=== PATIENT | male | born 1950 | race Caucasian/White ===

== ENCOUNTER 2024-10-24 08:25 | Observation (INO) | payer OTHER, SELFPAY ==
[2024-10-24] VITALS (8 sets, daily range): BP systolic 146–179; BP diastolic 79–97; PULSE 78–94; RESP 14–21; TEMP 36.7–37.1; O2SAT 96–100; BMI 30.4; BMI 28.3
--- NOTE | 2024-10-24 08:28 | XRR_ITS ---
PROCEDURE INFORMATION: Exam: XR Chest Exam date and time: 10/24/2024 8:56 AM Age: 74 years old Clinical indication: Other: AMS TECHNIQUE: Imaging protocol: Radiologic exam of the chest. Views: 1 view. COMPARISON: No relevant prior studies available. FINDINGS: Lungs: There is mild left pulmonary scarring. No consolidation. Pleural spaces: Unremarkable. No pleural effusion. No pneumothorax. Heart/Mediastinum: Unremarkable. No cardiomegaly. Bones/joints: Unremarkable. XR/XR chest 1V portable [id number] IMPRESSION: No acute findings.
--- NOTE | 2024-10-24 08:28 | CTR_ITS ---
PROCEDURE INFORMATION: Exam: CT Head Without Contrast Exam date and time: 10/24/2024 8:53 AM Age: 74 years old Clinical indication: Altered mental status/memory loss; Confusion or disorientation; Additional info: AMS TECHNIQUE: Imaging protocol: Computed tomography of the head without contrast. Radiation optimization: All CT scans at this facility use at least one of these dose optimization techniques: automated exposure control; mA and/or kV adjustment per patient size (includes targeted exams where dose is matched to clinical indication); or iterative reconstruction. COMPARISON: No relevant prior studies available. RADIATION DOSE METRICS: Total DLP (mGy-cm): 990.98 FINDINGS: Brain: There is no evidence of acute parenchymal hemorrhage, extra-axial collection, or acute infarction. There is no mass effect, midline shift, or downward herniation. Cerebral ventricles: No ventriculomegaly. Paranasal sinuses: Visualized sinuses are unremarkable. No fluid levels. Mastoid air cells: Visualized mastoid air cells are well aerated. Bones: Unremarkable. No acute fracture. Soft tissues: Unremarkable. CT/CT head wo con* [id number] IMPRESSION: No acute intracranial abnormality.
--- NOTE | 2024-10-24 08:30 | ED_ITS ---
HPI - Neuro Symptoms/Deficit 2 General: Chief Complaint: Altered Mental Status Stated Complaint: ams Time Seen by Provider: 10/24/24 08:25 Source: patient and EMS Mode of arrival: EMS History of Present Illness: 74-year-old male is here with EMS for al tered mental status and confusion. EMS states that he has been having some confusion since last night. Patient here is able to tell me his name where he is from but he is confused he states the year was 1973. He has had no slurred speech or weakness or focal deficits denies any fever or pain Associated symptoms: Deny chest pain, headache(s), nausea or vomiting Related Data Allergies Allergy/AdvReac Type Severity Reaction Status Date / Time No Known Allergies Allergy Verified 10/24/24 08:31 Review of Systems 2 Const: Denies: fever(s), chills, body aches or change in appetite Eyes: Denies: blurry vision or eye discomfort ENMT: Denies: throat pain or dental pain Card: Denies: chest pain Resp: Denies: dyspnea GI: Denies: abdominal pain, nausea, vomiting or diarrhea Musc: Denies: neck pain or back pain Skin/Breast: Denies: rash Neuro: Denies: headache(s) NIH stroke score 2 NIHSS: Level Of Consciousness - 1a: 0 Level Of Consciousness Questions - 1b: Both Correct Level Of Consciousness Commands - 1c: Both Correct Best Gaze - 2: Normal Visual Collins - 3: No Visual Loss Facial Palsy - 4: N ormal Motor Arm Right - 5: No Drift Motor Arm Left - 5: No Drift Motor Leg Right - 6: No Drift Motor Leg Left - 6: No Drift Limb Ataxia - 7: A bsent Sensory - 8: Normal Best Language - 9: No Aphasia Dysarthia - 10: Normal Extinction And Inattention - 11: 0 Score: Total Score: 0 Physical Exam 2 Const: COMMON NORMALS: no acute distress, healthy appearing and alert O RIENTATION/CONSCIOUSNESS: Yes oriented to person and Yes oriented to place; not oriented to time HENMT: COMMON NORMALS: normocephalic and atraumatic HEAD & SCALP: n ormocephalic and atraumatic Eye: COMMON NORMALS: Equal, round and reactive pupils present and EOMs intact bilaterally PUPIL: Yes Equal, round and reactive pupils present Neck/C-Spine: COMMON NORMALS: full ROM and supple Chest: COMMONS NORMALS: normal inspection of the chest Resp: COMMON NORMALS: normal respiratory effort, No retractions, No use of accessory muscles and clear to auscultation bilaterally AUSCULTATION: clear to auscultation bilaterally Cardio: COMMON NORMALS: regular rate, regular rhythm and No murmurs present (Cardio) RATE: regular rate RHYTHM: regular rhythm GI: COMMON NORMALS: Normal to inspection, nondistended, normoactive bowel sounds present, Soft to palpation, non-tender and no masses PALPATION: Yes Soft to palpation Extremity: COMMON NORMALS: normal to inspection and full ROM Neuro: COMMON NORMALS: moves all extremities and no focal motor deficits S ENSORIUM/ORIENTATION: Yes alert, Yes oriented to person, Yes oriented to place and No oriented to time Psych: COMMON NORMALS: mental status grossly normal, Normal thought process present and cooperative THOUGHT PROCESS: Normal thought process present Skin: COMMON NORMALS: no rashes or lesions noted and no wounds GENERAL SKIN EXAM: no rashes or lesions noted Course 2 Vital Signs: Vital signs: Vital Signs Temperature 98.7 F 10/24/24 08:25 Pulse Rate 91 10/24/24 08:25 Respiratory Rate 18 10/24/24 08:25 Blood Pressure 177/80 10/24/24 08:25 Pulse Oximetry 98 10/24/24 08:25 Oxygen Delivery Me thod Room Air 10/24/24 08:25 MDM - Neuro Symptoms/Deficit Medical Decision Making Patient presents here with altered mental status he has have confusion does not know the year patient is not a lytic candidate due to being out of window last time normal was last night spoke to hospitalist will admit at this time. Medical Records I reviewed the patient's medical records. Lab Data I reviewed the patient's lab results. 10/24/24 08:32 10/24/24 08:32 Radiology Impressions Chest X-Ray 10/24/24 08:28 IMPRESSION: No acute findings. Head CT 10/24/24 08:28 IMPRESSION: No acute intracranial abnormality. Laboratory Results WBC 3.82 10^3/uL (3.29-11.43) 10/24/24 08:32 RBC 4.48 10^6/uL (3.85-5.65) 10/24/24 08:32 Hgb 13.90 g/dL (11.27-16.99) 10/24/24 08:32 Hct 41.5 % (37-53) 10/24/24 08:32 MCV 92.6 fl (82-101) 10/24/24 08:32 MCH 31.0 pg (27-33) 10/24/24 08:32 MCHC 33.5 g/dL (30-55) 10/24/24 08:32 RDW 13.6 % (12.1-15.1) 10/24/24 08:32 Plt Count 126 10^3/cmm (157-399) L 10/24/24 08:32 MPV 10.6 fL (7.4-10.4) H 10/24/24 08:32 Neut % (Auto) 39.7 % 10/24/24 08:32 Lymph % (Auto) 44.8 % 10/24/24 08:32 [place] % (Auto) 10.2 % 10/24/24 08:32 Eos % (Auto) 4.5 % 10/24/24 08:32 Baso % (Auto) 0.5 % 10/24/24 08:32 Neut # (Auto) 1.52 10^3/uL (1.8-7.7) L 10/24/24 08:32 Lymph # (Auto) 1.7 10^3/uL (0.8-4.8) 10/24/24 08:32 [place] # (Auto) 0.4 10^3/uL (0.2-0.9) 10/24/24 08:32 Eos # (Auto) 0.2 10^3/uL (0.0-0.8) 10/24/24 08:32 Baso # (Auto) 0.0 10^3/uL (0.0-0.1) 10/24/24 08:32 Nucleated RBC % (auto) 0 % 10/24/24 08:32 Nucleated RBCs # 0.0 /100WBC 10/24/24 08:32 PT 15.10 SECONDS (12.1-14.9) H 10/24/24 08:32 INR 1.11 (0.8-1.2) 10/24/24 08:32 Sodium 139 mmol/L (136-145) 10/24/24 08:32 Potassium 4.1 mmol/L (3.5-5.1) 10/24/24 08:32 Chloride 106 mmol/L (98-107) 10/24/24 08:32 Carbon Dioxide 22 mmol/L (22-29) 10/24/24 08:32 Anion Gap 15.1 (5-19) 10/24/24 08:32 BUN 17 mg/dL (8-23) 10/24/24 08:32 Creatinine 0.9 mg/dL (0.7-1.2) 10/24/24 08:32 GFR Calculation Not Reportable 10/24/24 08:32 Glucose 113 mg/dL (65-115) 10/24/24 08:32 Calculated Osmolality 290 mOsm/kg (285-295) 10/24/24 08:32 Calcium 9.3 mg/dL (8.5-10.5) 10/24/24 08:32 Total Bilirubin 1.1 mg/dL (0.15-1.2) 10/24/24 08:32 AST 35 U/L (0-40) 10/24/24 08:32 ALT 25 U/L (0-41) 10/24/24 08:32 Alkaline Phosphatase 60 U/L (40-130) 10/24/24 08:32 Total Protein 7.3 g/dL (6.6-8.7) 10/24/24 08:32 Albumin 4.0 g/dL (3.5-5.2) 10/24/24 08:32 Globulin 3.3 g/dL (1.3-4.6) 10/24/24 08:32 TSH 3.04 uIU/mL (0.27-4.20) 10/24/24 08:32 Urine Color Yellow (Yellow) 10/24/24 08:45 Urine Appearance Clear (CLEAR) 10/24/24 08:45 Urine pH 6.5 (5-7) 10/24/24 08:45 Ur Specific [place] 1.022 (1.005-1.030) 10/24/24 08:45 Urine Protein Negative (Negative) 10/24/24 08:45 Urine Glucose (UA) Negative (Normal) 10/24/24 08:45 Urine Ketones Negative (Negative) 10/24/24 08:45 Urine Blood Negative (Negative) 10/24/24 08:45 Urine Nitrate Negative (Negative) 10/24/24 08:45 Urine Bilirubin Negative (Negative) 10/24/24 08:45 Urine Urobilinogen 1.0 mg/dL (Negative) 10/24/24 08:45 Ur Leukocyte Esterase Negative (Negative) 10/24/24 08:45 Urine RBC 0-2 /hpf (0-2) 10/24/24 08:45 Urine WBC 0-5 /hpf (0-5) 10/24/24 08:45 Ur Squamous Epith Cells 0-5 /hpf (0-5) 10/24/24 08:45 Amorphous Sediment Not Reportable 10/24/24 08:45 Urine Bacteria None seen /hpf (NONE) 10/24/24 08:45 Hyaline Casts 0.81 /lpf 10/24/24 08:45 All radiology interpretation(s) finalized by discharge EKG Data EKG 1: I personally reviewed and interpreted this EKG as follows: EKG interpretation date: 10/24/24 EKG interpretation time: 08:36 Interpretation: nsr hr [address] elevation qrs 89 qtc 414 Discharge Plan Discharge Patient Disposition: Admitted As Inpatient Clinical Impression: Altered mental status Condition: Stable Coding Level of Care Code ED Director Enterprise [employer] for Lynn Souza
--- NOTE | 2024-10-24 08:36 | ECG_ITS ---
[facility] Test Date: 2024-10-24 Pat Name: Sacha Maldonado Department: Room: Gender: Male Health Care Legal Assistant: : 1950 Requested By: Rhett Franklin Order Number: [id number] Saldaña MD: José iMguel Viera M.D. Measurements Intervals [place] Rate: 90 P: 38 IA: 141 QRS: 67 QRSD: 89 T: 41 QT: 367 QTc: 449 Interpretive Statements SINUS RHYTHM No previous ECG available for comparison Electronically Signed On 10-24-2024 20:16:37 CDT by José Miguel Viera M.D. [email or web address]
--- OUTSIDE RECORDS SUMMARY | 2024-10-24 08:36 | XMS_ITS | Clinical Summary ---
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 Gender Identity Not on file Sexual Orientation Not on file Plan of Treatment Health Maintenance Due Date Last Done Comments Diagnostic Colonoscopy 1950 Depression Screening [address] for [address] Colonography 1995 Colorectal Cancer Screening 1995 FIT-DNA (Cologuard) 1995 Fecal Immunochemical Testing (FIT) 1995 Fecal Occult Blood (FOBT) 1995 Flexible Sigmoidoscopy 1995 Screening Colonoscopy 1995 HCPOA Document on File 02/10/2000 Pneumococcal Vaccines (50+) (1 of 1 - PCV) 02/10/2000 Zoster (Shingles) Vaccine (1 of 2) 02/10/2000 Fall Screening 2015 COVID-19 Vaccine (1 - 2023-2 5 season) 2024 Influenza Vaccine (#1) 2024 RSV Vaccine (60+/) (1 - 1-dose 75+ series) 2025 DTaP/Tdap/Td Vaccines (2 - T d or Tdap) 10/08/2025 10/09/2015 HIB Vaccines Aged Out No longer eligi ble based on patient's age to complete this topic HPV Vaccines Aged Out No longer eligi ble based on patient's age to complete this topic Hepatitis A Vaccines Aged Out No long er eligible based on patient's age to complete this topic Hepatitis B Vaccines Aged Out No long er eligible based on patient's age to complete this topic IPV Vaccines Aged Out No longer eligi ble based on patient's age to complete this topic Meningococcal B Vaccine Aged Out No l onger eligible based on patient's age to complete this topic Meningococcal Vaccine (ACWY) Aged Out No longer eligible based on patient's age to complete this topic Rotavirus Vaccines Aged Out No longer eligible based on patient's age to complete this topic
[2024-10-24 08:42] LABS: Hematocrit 41.5 % (37-53); Hemoglobin 13.90 g/dL (11.27-16.99); Mean Corpuscular HGB Conc 33.5 g/dL (30-55); Mean Corpuscular Hemoglobin 31.0 pg (27-33); Mean Corpuscular Volume 92.6 fl (82-101); Nucleated Red Blood Cells % 0 %; Platelet Count 126 10^3/cmm (157-399); Red Blood Count 4.48 10^6/uL (3.85-5.65); White Blood Count 3.82 10^3/uL (3.29-11.43)
[2024-10-24 08:52] LABS: INR 1.11 (0.8-1.2); Prothrombin Time 15.10 SECONDS (12.1-14.9)
[2024-10-24 09:01] LABS: Glucose Urine UA Negative (Normal); Nitrate Urine Negative (Negative); Specific Gravity, Urine 1.022 (1.005-1.030)
[2024-10-24 09:06] LABS: Add Urine Microscopic? YES
[2024-10-24 09:07] LABS: Alanine Aminotransferase 25 U/L (0-41); Albumin Level 4.0 g/dL (3.5-5.2); Alkaline Phosphatase 60 U/L (40-130); Anion Gap 15.1 (5-19); Aspartate Amino Transferase 35 U/L (0-40); Blood Urea Nitrogen 17 mg/dL (8-23); Calcium 9.3 mg/dL (8.5-10.5); Carbon Dioxide 22 mmol/L (22-29); Chloride 106 mmol/L (98-107); Creatinine Clr Calc Pharmacy 78.7592; Globulin 3.3 g/dL (1.3-4.6); Glucose 113 mg/dL (65-115); Osmolality Calculated 290 mOsm/kg (285-295); Potassium 4.1 mmol/L (3.5-5.1); Sodium 139 mmol/L (136-145); Thyroid Stimulating Hormone 3.04 uIU/mL (0.27-4.20); Total Protein 7.3 g/dL (6.6-8.7)
--- NOTE | 2024-10-24 16:09 | PM.HP ---
Providers/Chief Complaint Admitting Physician: Luke Naidu MD Primary Care Provider: [place] in [facility] Chief Complaint: ams History of Present Illness Sacha Maldonado is a 74 year old male visiting from [facility] with his Marge and they are going to a reunion with her cousins 2 of them who are present at bedside. Patient and are planning to drive to [place] [facility] to see other cousins today leaving from their hotel. Patient's last night noticed that he was confused and thought that he was just missing sleep. This morning he awoke extremely confused with the following examples he was trying to get out of bed and rolling to his right side was tangled up in the blankets and was befuddled. She asked him what he was doing and he said he was stuck trying to get out of bed. She instructed him to roll to his left side to get out of bed disentangle himself from the bedcovers. After that he was putting in his hearing aids and put in 1 hearing aid then walked across the other side of the room also befuddled and she asked what he was doing and he states he was trying to find his hearing aid but it had been next to the other 1 that he just put in. He was also taking his meds and that he held them in his hand took a drink of water and they were still in his hand. This morning he does not know his age or year. He did not seem to be confused regarding where they were or what was going on. Patient was confused until about 2 hours ago. 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 It has a kitchen and common area as well as 3 bathrooms. Patient admits to being a little stressed driving through [place] but otherwise is not under stress. Patient states he has some sleeping medicine at home but has not been taking it. He has only been taking lisinopril 10 mg daily for high blood pressure reports that his blood pressure is typically under control. Patient admits to some cough Review of Systems Narrative: General no fevers chills he felt cold this morning in the ER but states is cold down there he feels fine now he has lost 30 pounds from 210 down to 181. states he felt better after blood pressure medication has been more active Cardiovascular no chest pain he does have palpitations sometimes with anxiety denies edema Respiratory positive for cough x 2 weeks nonproductive no wheezing GI positive for diarrhea 3 weeks duration 4 months ago that resulted in weight loss says the small hospital he was at told him that it was a virus leading to dehydration and altered mental status looks like a stroke and that he was 1 of 4 patients that it had that. He had a negative MRI at the time. Patient never had amnesia before but he has had early dementia about 1 year worse in the last 6 months [address] okay. 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 States he is recently has been building a shed and also babysits his grandkids Medications/Allergies Home Medications ?Medication ?Instructions ?Recorded ?Confirmed ?Last Taken ?Type cholecalciferol (vitamin D3) 125 125 mcg PO DAILY 10/24/24 10/24/24 10/24/24 07:00 History mcg (5,000 unit) tablet (Vitamin D3) fluticasone propionate 50 1 spray intranasal DAILY 10/24/24 10/24/24 10/24/24 History mcg/actuation nasal spray,suspension ibuprofen 200 mg tablet (Advil) 400 mg PO Q6H PRN Fever Or Pain 10/24/24 10/24/24 10/23/24 History lisinopril 10 mg tablet 10 mg PO QAM 10/24/24 10/24/24 10/24/24 07:00 History magnesium glycinate 100 mg (as 100 mg PO DAILY 10/24/24 10/24/24 10/24/24 07:00 History glycinate) tablet omega 7-eeu-luf-fish oil 1,000 mg 1 cap PO DAILY 10/24/24 10/24/24 10/24/24 07:00 History (120 mg-180 mg) capsule (Fish Oil) turmeric 400 mg capsule 400 mg PO DAILY 10/24/24 10/24/24 10/24/24 07:00 History Allergies Allergy/AdvReac Type Severity Reaction Status Date / Time No Known Allergies Allergy Verified 10/24/24 08:31 PFSH Acute PFSH: Medical History (Updated 10/24/24 @ 16:25 by Luke Naidu MD) Dementia Social History (Updated 10/24/24 @ 16:20 by Luke Naidu MD) Smoking and tobacco/nicotine status: light tobacco/nicotine user cigars Cigar details: Mostly while driving to stay awake and quit 30 years ago Alcohol intake: former Former alcohol use details: Drink on occasion i.e. 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 Household members: spouse Marital status: Marital status details: Marge present bedside Previous occupational history: Retired from [employer] Vitals/I&O/Wt Last Vital Signs Temp 98.7 F 10/24/24 08:25 Pulse 92 10/24/24 12:03 Resp 14 10/24/24 11:30 BP 157/80 10/24/24 12:03 Pulse Ox 100 10/24/24 12:03 O2 Del Method Room Air 10/24/24 13:09 10/24/24 10/24/24 10/24/24 06:59 14:59 22:59 Intake Total 0 / 0 Balance 0 / 0 Weight last 48 hrs Weight 84.55 kg Weight 90.718 kg Physical Exam Narrative: General well-developed well-nourished male in no acute cardiopulmonary distress Neuro he is alert and oriented to person place October 2024 Trump the president 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 Pupils equally round and reactive to light external ocular movements are intact face is symmetric tongue deviation perhaps slightly to the right. Eye squint is intact face is without numbness arms without numbness motor strength 5/5 bilateral handgrips biceps triceps ankle flexion and extension. Patient is very strong in all extremities. Head turn left and right normal strength Cardiovascular neck no bruits CV regular rate and rhythm calves no tenderness or pretibial edema Lungs clear to auscultation bilaterally Abdomen positive bowel tones soft nontender Calves no tenderness no asymmetry Skin warm and dry Mentation pleasant easygoing not anxious or angry Data 10/24/24 08:32 10/24/24 08:32 A&P Assessment and plan 1. Altered mental status: This is largely resolved and may be attributable to TIA, hypertensive encephalopathy or transient global amnesia. The patient primarily had confusion with ADLs. He did not have motor dysfunction seen by family his neuroexam is negative except for mild dementia expressive type word finding difficulty. 2. Transient ischemic attack (TIA): Blood pressure elevated will check echocardiogram, telemetry and carotid Dopplers lipid panel in the morning. Patient is reluctant to take statins 3. Dementia: is noted Alzheimer's type symptoms for 1 year worse the last 6 months 4. Hypertension: Due to his cough I am going to stop lisinopril and start losartan at 50 mg daily 5. Hyperlipidemia: Lipid panel in the morning PDMP PDMP Reviewed: Not Reviewed Attestations Medical Necessity Statement*: Patient will be observed overnight and expected to discharge tomorrow afternoon Coding Level of Care Code 66804 Diagnoses Altered mental status R41.82 Transient ischemic attack (TIA) G45.9 Dementia F03.90 Hypertension I10 Hyperlipidemia E78.5 Time Spent (min) 70
--- NOTE | 2024-10-24 16:28 | USR_ITS ---
PROCEDURE INFORMATION: Exam: US Duplex Bilateral Extracranial Arteries; Complete; Carotid Arteries Exam date and time: 10/24/2024 6:56 PM Age: 74 years old Clinical indication: Other: TIA and hypertension TECHNIQUE: Imaging protocol: Real-time duplex ultrasound scan of the bilateral extracranial arteries combining dumont scale, color Doppler and spectral waveform analysis with image documentation. Complete exam. Exam focused on the carotid arteries. COMPARISON: CT head wo con* [id number] 10/24/2024 8:53 AM FINDINGS: Right common carotid artery: Unremarkable. No occlusion or stenosis. Waveforms are normal. Right internal carotid artery: Unremarkable. No occlusion or stenosis. Waveforms are normal. Right ICA/CCA ratio: 1.4. Within normal limits. Right external carotid artery: Slightly elevated velocity at the origin. Right vertebral artery: Unremarkable. Antegrade flow. Left common carotid artery: Unremarkable. No occlusion or stenosis. Waveforms are normal. Left internal carotid artery: Unremarkable. No occlusion or stenosis. Waveforms are normal. Left ICA/CCA ratio: 1.3. Within normal limits. Left external carotid artery: Slightly elevated velocity at the origin. Left vertebral artery: Unremarkable. Antegrade flow. Other findings: Incidental notation of mildly elevated velocity in the left subclavian origin. US/CV carotid duplex BI* [id number] IMPRESSION: No hemodynamically significant carotid arterial stenosis. REFERENCES: SRU CRITERIA. The degree of internal carotid artery stenosis is based on criteria defined by the Society of Radiologists in Ultrasound (SRU). Normal is no stenosis. Mild is less than 50% stenosis. Moderate is 50-69% stenosis. Severe is greater than 69% stenosis to near occlusion. Near occlusion is a markedly narrowed lumen. Total occlusion is no detectable patent lumen. Farhad Worley, et al. Carotid Artery Stenosis: Dumont-Scale and Doppler US Diagnosis-Society of Radiologists in Ultrasound Consensus Conference. Radiology 2003; 229:340-346.
--- NOTE | 2024-10-24 16:28 | USCV_ITS ---
Sacha Maldonado Age: 74 Gender: M : 1950 Exam Date: 10/24/2024 18:33 Ordering Phys: Luke Naidu MD Technologist: Bernabe Miranda [place] [facility] [place]: TIA AND HYPERTENSION BP: 146 / 79 HR: 74 Rhythm: Sinus Technical Quality: Adequate MEASUREMENTS (Male / Female) Normal Values 2D ECHO LV Diastolic Diameter PLAX 5.0 cm 4.2 - 5.9 / 3.9 - 5.3 cm IVS Diastolic Thickness 0.7 cm 0.6 - 1.0 / 0.6 - 0.9 cm IVS Systolic Thickness 1.1 cm LVPW Diastolic Thickness 0.9 cm 0.6 - 1.0 / 0.6 - 0.9 cm LVPW Systolic Thickness 1.4 cm LVOT Diameter 2.0 cm LV Ejection Fraction 2D Teich 54.3 % LV Ejection Fraction MOD 4C 71.3 % LV Ejection Fraction MOD 2C 64.2 % LV Ejection Fraction 2C AL 65.8 % LA Diameter 3.6 cm RA Systolic Volume 4C AL 38.4 ml RA Systolic Volume 4C MOD 37.3 ml Aorta at Sinotubular Diameter 2.0 cm IVC Diameter 2.0 cm M-MODE LA Ao Ratio MM 1.4 AV Cusp Separation MM 2.1 cm DOPPLER AV Peak Velocity 160.0 cm/s LVOT Peak Velocity 105.0 cm/s AV Area Cont Eq vti 2.6 cm squared AV Area Cont Eq pk 2.1 cm squared MV Peak Velocity 90.0 cm/s MV Area PHT 5.5 cm squared Mitral E to A Ratio 0.7 TV Peak Velocity 326.7 cm/s TR Peak Velocity 386.0 cm/s TR Peak Gradient 59.6 mmHg TR Mean Velocity 317.0 cm/s TR Mean Gradient 42.0 mmHg TR Velocity Time Integral 97.2 cm PV Peak Velocity 96.0 cm/s RV Ejection Time 0.3 s FINDINGS Left Ventricle Normal left ventricular size and systolic function, EF 64%.Grade I/IV diastolic dysfunction (abnormal relaxation filling pattern), normal to mildly elevated filling pressures. Right Ventricle The right ventricle is normal in size and function. Right Atrium The right atrium is normal in size. Left Atrium The left atrium is normal in size. Mitral Valve No gross abnormalities noted Aortic Valve Thickened aortic valve. Trace aortic valve regurgitation. Tricuspid Valve Trace to mild tricuspid valve regurgitation. Pulmonic Valve No gross abnormalities noted Pericardium Normal pericardium without effusion. Aorta Normal aortic annulus size. IVC Normal inferior vena cava. CONCLUSIONS Normal left ventricular size and systolic function, EF 64%.Grade I/IV diastolic dysfunction (abnormal relaxation filling pattern), normal to mildly elevated filling pressures. Thickened aortic valve. Trace aortic valve regurgitation. Trace to mild tricuspid valve regurgitation. There is no pericardial effusion. There are no intracardiac masses. No similar previous studies are available for comparison Dr Neno Rodriguez MD [facility] (Electronically Signed) Final Date: 25 October 2024 13:21 S
[2024-10-24 17:07] LABS: Vitamin B12 512 pg/mL (232-1245)
[2024-10-25] VITALS: BP 151/72; PULSE 70; RESP 18; TEMP 36.6; O2SAT 96
[2024-10-25 03:44] LABS: Cholesterol 214 mg/dL (0-200); HDL Cholesterol 50 mg/dL (60-100); Triglycerides 92 mg/dL (0-150)
[2024-10-25 04:07] VITALS: BP 152/85; PULSE 71; RESP 20; TEMP 36.4; O2SAT 96
[2024-10-25 08:32] VITALS: BP 152/85
[2024-10-25 09:03] VITALS: BP 148/80; PULSE 81; RESP 16; TEMP 36.4; O2SAT 98
--- NOTE | 2024-10-25 09:37 | PC.CHAP ---
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 [] Patient/Family/Request visit [] Outpatient visit [] Follow-up visit [] Physician referral [] Code/Alert [x] Routine visit [] Staff referral [] Actively dying [] Patient sleeping [] Family support [] [] Out of room [] Palliative care [] [] Receiving care in room [] Pre-surgical visit [] Trauma [] Long length of stay [] ICU visit [] Other: Relational/Emotional Strength [] Patient feels connected with others/family/visitors/staff [] Distress [] Loneliness/isolation [] Abandonment Spirituality of Patient [x] Person of Jie [] Attends Taoism of their Jie [x] Believes in Prayer [] Reads Bible or Hinduism materials [] There are Spiritual issues to be addressed Medical Coding Instructor Interventions [x] Prayer [x] Active listening [] Non-anxious presence [] Spiritual/emotional support [] Crisis/trauma care [] Spiritual counseling [] Bereavement support [] Provided bereavement packet [x] Provided Bible/devotional materials [] Provided toy/stuffed animal, coloring book to patient or family member [] Provided Communion [] Anointing/Gardena [] Salvation [x] Completed spiritual assessment [] Other: Impact on Illness or Injury [] Angry [] Fearful [] Anxious [] Often cries [] Exhaustion [] Unable to work [] Unable to attend pentecostal [] Unable to walk/stand [] Unable to read [] Unable to drive [] Unable to eat/drink [] Unable to sleep [] Unable to be with family [] Patient intubated [] Other: Summary Time spent with patient 10 min
[2024-10-25 11:58] VITALS: BP 146/83; PULSE 81; RESP 17; TEMP 37; O2SAT 98
--- NOTE | 2024-10-25 14:41 | PC.OT ---
OT EVALUATION HELD PATIENT IS SCHEDULED FOR D/C TODAY.
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
== END 2024-10-25 12:55 | disposition home or self-care (01) ==
LOC: ER 10:45 → MEDSURG 11:25
PROVIDERS: Admitting Provider Internal Medicine; Emergency Provider Emergency Medicine; Visit Provider Student in an Organized Health Care Education/Training Program
DX: R41.82 Altered mental status, unspecified (principal); G45.9 Transient cerebral ischemic attack, unspecified; F03.90 Unspecified dementia, unspecified severity, without behavioral disturbance, psychotic disturbance, mood disturbance, and anxiety; I10 Essential (primary) hypertension; E78.5 Hyperlipidemia, unspecified
CPT/HCPCS: 36415; 70450; 71045; 80053; 80061; 81001; 82607; 84443; 85025; 85610; 93005; 93306; 93880; 99285; G0378; J9999